=== PATIENT | female | born 1980 | race Caucasian/White ===

== ENCOUNTER 2020-09-28 14:36 | Emergency (ER) | payer OTHER ==
[~2020-09-28] VITALS: Ht 157.5 cm; Wt 104.3 kg
[2020-09-28] MEDS ORDERED: NOVOLOG100 UNIT/M SUBQ (14:57)
[2020-09-28] MEDS ORDERED: LEVEMIR100 UNIT/1 SUBQ (14:57)
[2020-09-28] MEDS ORDERED: METFORMIN HCL500 M3 PO (14:58)
[2020-09-28] MEDS ORDERED: GLYBURIDE 5 MG T5 M1 PO (14:58)
[2020-09-28 15:51] LABS: ABSOLUTE LYMPHOCYTES 0.8 thou/uL (0.8-5.3); ABSOLUTE MONOCYTES 0.5 thou/uL (0.0-1.2); ABSOLUTE NEUTROPHILS 7.1 thou/uL (1.6-8.1); BASOPHILS 0.2 %; HEMATOCRIT 41.2 % (37.0-47.0); HEMOGLOBIN 14.1 gm/dL (12.0-15.0); LYMPHOCYTES 9.4 %; MCH 29.3 pg (26.0-34.0); MCHC 34.1 g/dL (28.0-37.0); MONOCYTES 6.5 %; MPV 8.4 fl. (7.2-11.1); NUCLEATED RBCS 0 /100WBC; PLATELET COUNT* 227 thou/uL (150-400); POLYS 83.9 %; RBC 4.79 mil/uL (4.20-5.00); RDW-CV 14.2 % (10.5-14.5); WBC 8.4 thou/uL (4.0-11.0)
[2020-09-28 16:01] LABS: CALCIUM 8.3 mg/dL (8.5-10.1); CREATININE 0.7 mg/dL (0.6-1.3); POTASSIUM 3.4 mmol/L (3.5-5.1)
[2020-09-28 16:09] LABS: APTT 25.4 Seconds (25.0-31.3); PROTIME 10.5 Seconds (9.20-11.50)
[2020-09-28 16:12] LABS: ALBUMIN 2.6 g/dL (3.4-5.0); MAGNESIUM 1.8 mg/dL (1.8-2.4); TOTAL BILIRUBIN 0.5 mg/dL (<0.1-1.0); TOTAL PROTEIN 7.6 g/dL (6.4-8.2)
[2020-09-28] MEDS ORDERED: PHENERGAN 25 MG25 M1 PO (18:04)
[2020-09-28] MEDS ORDERED: FLEXERIL PO (18:04)
[2020-09-28 18:17] VITALS: BP 133/65
--- NOTE | 2020-09-29 12:18 | EKG ---
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1980 Requested By: Emerson Singer Order Number: [id number] MD: Felipe Bryant Measurements Intervals [place] Rate: 104 P: 67 VT: 158 QRS: -69 QRSD: 83 T: 30 QT: 329 QTc: 433 Interpretive Statements Sinus tachycardia Probable left atrial enlargement left anterior fasicular block Artifact in lead(s) II,III,aVR,aVL,aVF,V1,V3,V4,V5,V6 and baseline wander in lead (s) V1,V2,V5,V6 No previous ECG available for comparison Electronically Signed On 09-29-2020 12:18:17 [employer] 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
--- NOTE | 2020-09-29 16:07 | EKG ---
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1980 Requested By: Emerson Singer Order Number: [id number] MD: Felipe Bryant Measurements Intervals [place] Rate: 84 P: 51 [place]: 163 QRS: -8 QRSD: 90 T: 29 QT: 370 QTc: 438 Interpretive Statements Sinus rhythm artifact noted Borderline low voltage, extremity leads Abnormal R-wave progression, late transition Electronically Signed On 09-29-2020 16:06:48 [employer]TERN[employer] PRESSURE CAST by Felipe Bryant [email or web address] <ELECTRONICALLY SIGNED> By: Felipe Bryant MD, [facility] 09/29/20 1606 25 25 Felipe Bryant MD, [facility] /EPI
== END 2020-09-28 18:18 | disposition home or self-care (01) ==
LOC: M.ERS 14:36
PROVIDERS: Emergency Medicine Emergency Medical Services
DX: U07.1 COVID-19 (principal); R07.89 Other chest pain; E11.9 Type 2 diabetes mellitus without complications; Z91.040 Latex allergy status; Z88.8 Allergy status to other drugs, medicaments and biological substances; Z79.4 Long term (current) use of insulin